=== PATIENT | male | born 1980 | race Caucasian/White ===

== ENCOUNTER → 2017-04-12 | Outpatient (CLI) | payer OTHER | LOC: BHSO 09:08 | DX: F31.81 Bipolar II disorder (principal) ==

== ENCOUNTER → 2017-05-13 | Outpatient (CLI) | payer OTHER | LOC: BHSO 09:45 | DX: F31.81 Bipolar II disorder (principal) ==

== ENCOUNTER → 2017-07-12 | Outpatient (CLI) | payer OTHER | LOC: BHSO 09:59 | DX: F31.81 Bipolar II disorder (principal) ==

== ENCOUNTER → 2017-09-12 | Outpatient (CLI) | payer MEDICARE | LOC: BHSO 10:05 | DX: F31.81 Bipolar II disorder (principal) | CPT/HCPCS: G0463 ==

== ENCOUNTER → 2018-06-04 | Outpatient (CLI) | payer MEDICARE | LOC: BHSO 08:45 | DX: F31.81 Bipolar II disorder (principal) | CPT/HCPCS: G0463 ==

== ENCOUNTER → 2018-07-30 | Outpatient (CLI) | payer MEDICARE | LOC: BHSO 09:03 | DX: F31.81 Bipolar II disorder (principal) | CPT/HCPCS: G0463 ==